=== PATIENT | female | born 1985 | race Caucasian/White ===

== ENCOUNTER → 2019-11-28 | Outpatient (CLI) | payer OTHER ==
--- NOTE | 2019-11-28 14:27 | US ---
EXAMINATION TYPE: US kidneys/renal and bladder DATE OF EXAM: 11/28/2019 COMPARISON: NONE CLINICAL HISTORY: R10.814 Left lower quadrant abdominal tenderness. microscopic hematuria, no pain pe r patient, h/o renal stones 6 years ago EXAM MEASUREMENTS: Right Kidney: 11.0 x 5.6 x 4.7 cm Left Kidney: 9.4 x 3.6 x 6.0 cm Right Kidney: No hydronephrosis or masses seen Left Kidney: No hydronephrosis or masses seen Bladder: wnl Bilateral Jets seen: yes There is no evidence for hydronephrosis at this point in time. No nephrolithiasis is seen. No daniel s are identified. The urinary bladder is anechoic. Bilateral ureteral jets are seen. IMPRESSION: Unremarkable study. If symptoms of hematuria persist, CT evaluation would be warranted.
== END | disposition home or self-care (01) ==
LOC: RADUSWWP 13:53
PROVIDERS: ATTEND Family Medicine
DX: R10.814 Left lower quadrant abdominal tenderness (principal); R82.998 Other abnormal findings in urine
CPT/HCPCS: 76770

== ENCOUNTER → 2020-12-21 | Outpatient (CLI) | payer OTHER ==
[2020-12-22 07:42] LABS: Prothrombin Time 10.7 sec (9.0-12.0)
== END | disposition home or self-care (01) ==
LOC: LABWHC1 11:12
PROVIDERS: ATTEND Physician Assistant Medical
DX: D68.8 Other specified coagulation defects (principal)
CPT/HCPCS: 36415; 81241; 83090; 85384; 85610; 85730; 86147

== ENCOUNTER → 2021-06-20 | Outpatient (CLI) | payer OTHER ==
--- NOTE | 2021-06-22 20:30 | XR ---
EXAMINATION TYPE: XR abdomen 2V DATE OF EXAM: 06/20/2021 COMPARISON: 02/19/2015 HISTORY: Pain mid abdomen TECHNIQUE: 2 view abdomen FINDINGS: Nonspecific bowel gas is present. Air is within small bowel loops as well as the colon. Melina ear to be 6 lumbar type vertebral bodies. The pedicles are intact. Sacroiliac joints are normal. No o rganomegaly is evident. No free air is evident. No suspicious differential air-fluid levels are evide nt. IMPRESSION: 1. No acute abdomen abnormality radiographically apparent
== END | disposition home or self-care (01) ==
LOC: RADXRYALE 16:55
PROVIDERS: ATTEND Physician Assistant Medical
DX: R10.84 Generalized abdominal pain (principal)
CPT/HCPCS: 74019

== ENCOUNTER 2021-06-21 12:13 | Emergency (ER) | payer OTHER ==
[2021-06-21 12:27] VITALS: TEMP 97.7
[2021-06-21] MEDS ORDERED: KETOROLAC 15 MG/ML 1 ML VIAL IVP STA (12:44)
[2021-06-21] MEDS ORDERED: SODIUM CHLORIDE 0.9% 1,000 ML IV STA (12:44)
--- NOTE | 2021-06-21 12:49 | ED ---
General Adult HPI - General Chief complaint: Abdominal Pain Stated complaint: abd pain, abn labs Time Seen by Provider: 06/21/21 12:38 Source: patient, family, RN notes reviewed, old records reviewed Mode of arrival: ambulatory Limitations: no limitations - History of Present Illness Initial comments: 36-year-old female presents with complaints of right-sided abdominal pain. She states that it does radiate diffusely through her abdomen and around umbilicus. States also feels like it is radiating into her lower back. She denies any dysuria, no fevers, no nausea vomiting or diarrhea. She did see her primary care doctor yesterday who did blood work and was found to have elevated white blood cell count was told to come to the emergency room for evaluation of appendicitis. She does have a surgical history of hysterectomy. She is a smoker. Does not take any medicines on a daily basis. -: days(s) (5) Radiation: back (lower ), abdomen (RUQ) Severity scale (1-10): 3 Quality: sharp Consistency: intermittent Improves with: none Worsens with: movement, other (palpation) Associated Symptoms: denies other symptoms Treatments Prior to Arrival: other (labs yesterday with elevated WBC count) - Related Data Allergies Allergy/AdvReac Type Severity Reaction Status Date / Time morphine Allergy Nausea & Verified 06/21/21 12:27 Vomiting Review of Systems ROS Statement: Those systems with pertinent positive or pertinent negative responses have been documented in the HPI. ROS Other: All systems not noted in ROS Statement are negative. Past Medical History Past Medical History: No Reported History History of Any Multi-Drug Resistant Organisms: None Reported Past Surgical History: No Surgical Hx Reported, Hysterectomy Past Psychological History: No Psychological Hx Reported Smoking Status: Current every day smoker Past Alcohol Use History: None Reported Past Drug Use History: None Reported General Exam Limitations: no limitations General appearance: alert, in no apparent distress Head exam: Present: atraumatic, normocephalic, normal inspection Eye exam: Present: normal appearance. Absent: scleral icterus, conjunctival injection, periorbital swelling ENT exam: Present: normal exam, normal oropharynx, mucous membranes moist Neck exam: Present: normal inspection, full ROM. Absent: tenderness, meningismus, lymphadenopathy, thyromegaly Respiratory exam: Present: normal lung sounds bilaterally. Absent: respiratory distress, wheezes, rales, rhonchi, stridor, chest wall tenderness, accessory muscle use, decreased breath sounds Cardiovascular Exam: Present: regular rate, normal rhythm GI/Abdominal exam: Present: soft, tenderness (diffusely, worse right lower quadrant), hyperactive bowel sounds. Absent: distended, guarding, rigid Extremities exam: Present: normal inspection, full ROM, normal capillary refill. Absent: tenderness, pedal edema Back exam: Present: normal inspection, full ROM. Absent: tenderness, CVA tenderness (R), CVA tenderness (L), rash noted Neurological exam: Present: alert, oriented X3 Skin exam: Present: warm, dry, intact, normal color. Absent: rash, cyanosis, diaphoretic, erythema, petechiae, pallor Course Vital Signs 06/21/21 06/21/21 12:24 14:27 Temperature 97.7 F Pulse Rate 87 72 Respiratory 18 20 Rate Blood Pressure 118/82 97/61 O2 Sat by Pulse 100 99 Oximetry - Reevaluation(s) Reevaluation #1: 06/21/21 16:[address] Wagner who recommended OVA-1 test and f/u in office. Patient states pain improved after toradol. Time: 16:40 Medical Decision Making - Medical Decision Making 36-year-old female presents with complaints of right-sided abdominal pain that radiates diffusely through her abdomen and into her lower back. Sent by primary care for possible appendicitis. Labs show no evidence of leukocytosis. Electrolytes are unremarkable. Urinalysis is clear with no hematuria or sign of infection. CT shows appendix is within normal limits. Gallbladder, bile ducts and pancreas are unremarkable. There is no evidence of renal calculus. No evidence of bowel obstruction. No evidence of lymphadenopathy. There is a large left adnexal cystic structure which could represent ovarian cystic neoplasm measuring 10.9 cm with multiple septations, recommended US. Pelvic ultrasound shows a cystic pelvic mass consistent with an enlarged left ovary containing multiple cysts. The largest cyst measures 8 cm in length. There is no evidence of ovarian torsion. The right ovary is not seen. There is a small amount of free fluid in the cul-de-sac and a 4.9 x 2.4 x 2.1 cm elongated anechoic nonvascular structure within the right adnexa. Patient states pain has improved after Toradol. Vital signs are stable. She is eating and drinking in the emergency room no nausea vomiting or diarrhea. Abdomen remains minimally tender in the right lower quadrant. She was directed to return to the emergency room with any new or concerning symptoms including increased pain, fevers, persistent nausea and vomiting. Case discussed with Dr. Wagner who recommended follow-up as outpatient, to call Wednesday for appointment in the next 7-10 days. Patient was directed to take 600 mg of Motrin every 6 hours as needed for pain. No sexual intercourse, pelvic rest, no heavy lifting. Patient agreeable to this plan of care. Case discussed with Dr. West. - Lab Data Result diagrams: 06/21/21 12:51 06/21/21 12:51 Lab Results 06/21/21 06/21/21 06/21/21 Range/Units 12:51 12:51 12:51 WBC 9.9 (3.8-10.6) k/uL RBC 4.61 (3.80-5.40) m/uL Hgb 14.6 (11.4-16.0) gm/dL Hct 44.0 (34.0-46.0) % MCV 95.3 (80.0-100.0) fL MCH 31.6 (25.0-35.0) pg MCHC 33.2 (31.0-37.0) g/dL RDW 12.5 (11.5-15.5) % Plt Count 238 (150-450) k/uL MPV 8.0 Neutrophils % 69 % Lymphocytes % 24 % Monocytes % 4 % Eosinophils % 2 % Basophils % 0 % Neutrophils # 6.9 (1.3-7.7) k/uL Lymphocytes # 2.4 (1.0-4.8) k/uL Monocytes # 0.4 (0-1.0) k/uL Eosinophils # 0.2 (0-0.7) k/uL Basophils # 0.0 (0-0.2) k/uL PT 9.9 (9.0-12.0) sec INR 0.9 (<1.2) APTT 27.7 (22.0-30.0) sec Sodium (137-145) mmol/L Potassium (3.5-5.1) mmol/L Chloride (98-107) mmol/L Carbon Dioxide (22-30) mmol/L Anion Gap mmol/L BUN (7-17) mg/dL Creatinine (0.52-1.04) mg/dL Est GFR (CKD-EPI)AfAm (>60 ml/min/1.73 sqM) Est GFR (CKD-EPI)NonAf (>60 ml/min/1.73 sqM) Glucose (74-99) mg/dL Plasma Lactic Acid Eulogio (0.7-2.0) mmol/L Calcium (8.4-10.2) mg/dL Total Bilirubin (0.2-1.3) mg/dL AST (14-36) U/L ALT (4-34) U/L Alkaline Phosphatase (38-126) U/L Total Protein (6.3-8.2) g/dL Albumin (3.5-5.0) g/dL Amylase (30-110) U/L Lipase (23-300) U/L Urine Color Light Yellow Urine Appearance Clear (Clear) Urine pH 7.0 (5.0-8.0) Ur Specific Story 1.003 (1.001-1.035) Urine Protein Negative (Negative) Urine Glucose (UA) Negative (Negative) Urine Ketones Negative (Negative) Urine Blood Negative (Negative) Urine Nitrite Negative (Negative) Urine Bilirubin Negative (Negative) Urine Urobilinogen <2.0 (<2.0) mg/dL Ur Leukocyte Esterase Negative (Negative) 06/21/21 06/21/21 Range/Units 12:51 12:51 WBC (3.8-10.6) k/uL RBC (3.80-5.40) m/uL Hgb (11.4-16.0) gm/dL Hct (34.0-46.0) % MCV (80.0-100.0) fL MCH (25.0-35.0) pg MCHC (31.0-37.0) g/dL RDW (11.5-15.5) % Plt Count (150-450) k/uL MPV Neutrophils % % Lymphocytes % % Monocytes % % Eosinophils % % Basophils % % Neutrophils # (1.3-7.7) k/uL Lymphocytes # (1.0-4.8) k/uL Monocytes # (0-1.0) k/uL Eosinophils # (0-0.7) k/uL Basophils # (0-0.2) k/uL PT (9.0-12.0) sec INR (<1.2) APTT (22.0-30.0) sec Sodium 137 (137-145) mmol/L Potassium 4.1 (3.5-5.1) mmol/L Chloride 106 (98-107) mmol/L Carbon Dioxide 24 (22-30) mmol/L Anion Gap 7 mmol/L BUN 8 (7-17) mg/dL Creatinine 0.69 (0.52-1.04) mg/dL Est GFR (CKD-EPI)AfAm >90 (>60 ml/min/1.73 sqM) Est GFR (CKD-EPI)NonAf >90 (>60 ml/min/1.73 sqM) Glucose 99 (74-99) mg/dL Plasma Lactic Acid Eulogio 0.8 (0.7-2.0) mmol/L Calcium 9.3 (8.4-10.2) mg/dL Total Bilirubin 0.8 (0.2-1.3) mg/dL AST 22 (14-36) U/L ALT 20 (4-34) U/L Alkaline Phosphatase 67 (38-126) U/L Total Protein 6.9 (6.3-8.2) g/dL Albumin 4.0 (3.5-5.0) g/dL Amylase 64 (30-110) U/L Lipase 148 (23-300) U/L Urine Color Urine Appearance (Clear) Urine pH (5.0-8.0) Ur Specific Story (1.001-1.035) Urine Protein (Negative) Urine Glucose (UA) (Negative) Urine Ketones (Negative) Urine Blood (Negative) Urine Nitrite (Negative) Urine Bilirubin (Negative) Urine Urobilinogen (<2.0) mg/dL Ur Leukocyte Esterase (Negative) Disposition Clinical Impression: Ovarian cyst Disposition: HOME SELF-CARE Condition: Good Instructions (If sedation given, give patient instructions): Ovarian Cyst (ED) Additional Instructions: Take 600 mg of Motrin every 6 hours as needed for pain. Increase your fluid intake. Pelvic rest, no sex and no heavy lifting. Follow-up with Dr. Wagner [employer]. Call the office on Wednesday morning to make an appointment at , they will schedule an appointment within the next 7-10 days. Return to the emergency room with any new or concerning symptoms including increased pain, persistent nausea vomiting or fevers. Is patient prescribed a controlled substance at d/c from ED?: No Referrals: Juan M Persaud DO [Primary Care Provider] - 1-2 days Ann Marie Wagner MD [STAFF PHYSICIAN] - 1-2 days Time of Disposition: 16:42
[2021-06-21 12:56] LABS: Appearance,Urine Clear (Clear); Basophils % (A) 0 %; Bilirubin,Urine Negative (Negative); Blood,Urine Negative (Negative); Color,Urine Light Yellow; Eosinophils # (A) 0.2 k/uL (0-0.7); Eosinophils % (A) 2 %; Glucose,Urine (UA) Negative (Negative); HGB 14.6 gm/dL (11.4-16.0); Ketones,Urine Negative (Negative); Leukocyte Esterase,Urine Negative (Negative); Lymphocytes # (A) 2.4 k/uL (1.0-4.8); Lymphocytes % (A) 24 %; MCH 31.6 pg (25.0-35.0); MCHC 33.2 g/dL (31.0-37.0); MCV 95.3 fL (80.0-100.0); Monocytes # (A) 0.4 k/uL (0-1.0); Monocytes % (A) 4 %; Neutrophils # (A) 6.9 k/uL (1.3-7.7); Neutrophils % (A) 69 %; Nitrite,Urine Negative (Negative); Platelet Count 238 k/uL (150-450); Protein,Urine Negative (Negative); RBC 4.61 m/uL (3.80-5.40); RDW 12.5 % (11.5-15.5); Specific Gravity,Urine 1.003 (1.001-1.035); Urobilinogen,Urine <2.0 mg/dL (<2.0); WBC 9.9 k/uL (3.8-10.6)
[2021-06-21 13:05] LABS: ALT 20 U/L (4-34); AST 22 U/L (14-36); African American GFR (CKD) >90 (>60 ml/min/1.73 sqM); Alkaline Phosphatase 67 U/L (38-126); Amylase 64 U/L (30-110); Anion Gap 7 mmol/L; Blood Urea Nitrogen 8 mg/dL (7-17); Calcium 9.3 mg/dL (8.4-10.2); Carbon Dioxide 24 mmol/L (22-30); Chloride 106 mmol/L (98-107); Glucose 99 mg/dL (74-99); Lipase 148 U/L (23-300); Non-African American GFR(CKD) >90 (>60 ml/min/1.73 sqM); Potassium 4.1 mmol/L (3.5-5.1); Sodium 137 mmol/L (137-145); Total Bilirubin 0.8 mg/dL (0.2-1.3); Total Protein 6.9 g/dL (6.3-8.2)
[2021-06-21 13:11] LABS: INR 0.9 (<1.2); Partial Thromboplastin Time 27.7 sec (22.0-30.0); Prothrombin Time 9.9 sec (9.0-12.0)
--- NOTE | 2021-06-21 13:45 | CT ---
EXAMINATION TYPE: CT abdomen pelvis w con CT DLP: 908.8 mGycm, Automated exposure control for dose reduction was used. DATE OF EXAM: 06/21/2021 1:36 PM COMPARISON: None CLINICAL INDICATION:Female, 36 years old with history of abdominal pain; Abdominal pain and abnormal labs TECHNIQUE: Standard CT of the abdomen and pelvis following the administration of 100 cc of Isovue 3 00 IV contrast material. Coronal and sagittal reformats were performed. FINDINGS: LOWER CHEST: Unremarkable ABDOMEN LIVER: Unremarkable GALLBLADDER AND BILE DUCTS: Unremarkable. PANCREAS: Unremarkable. SPLEEN: Unremarkable. ADRENAL GLANDS: Unremarkable. KIDNEYS AND URETERS: No evidence of hydronephrosis or renal calculus. The ureters are unremarkable. PELVIS BLADDER: Unremarkable REPRODUCTIVE: Multiloculated left adnexal structure felt to be ovarian measuring 10.9 x 7.6 x 7.4 cm. ABDOMEN & PELVIS STOMACH AND BOWEL: No evidence of bowel obstruction. Appendix is within normal limits. PERITONEUM: No evidence of pneumoperitoneum or free fluid. VASCULATURE: No evidence of aortic aneurysm. MUSCULOSKELETAL: No acute osseous abnormalities LYMPH NODES: No gross evidence for lymphadenopathy. SOFT TISSUE/ABDOMINAL WALL: Unremarkable IMPRESSION: 1. Large left adnexal cystic structure which could represent ovarian cystic neoplasm measuring up to 10.9 cm with multiple septations. This should be further evaluated pelvic ultrasound. Cysts of this s ize can but the ovary at increased risk of torsion.
[2021-06-21 14:28] VITALS: RESP 20
--- NOTE | 2021-06-21 15:57 | US ---
EXAMINATION TYPE: US pelvic complete DATE OF EXAM: 06/21/2021 COMPARISON: CT 2021 CLINICAL HISTORY: Left adnexal mass. Left adnexal mass seen on CT, right pelvic pain x 4 days, gravid a 1, para 1, history of partial hysterectomy 8 years ago TECHNIQUE: . Transabdominal sonographic images of the pelvis were acquired. Transvaginal sonographi c images were medically necessary to better assess the following anatomy: ovaries Date of LMP: 8 years ago EXAM MEASUREMENTS: Right Ovary: not seen Left Ovary: 7.7 x 4.6 x 6.3 cm 1. Uterus: surgically absent 2. Endometrium: surgically absent 3. Right Ovary: 4. Left Ovary: 3.3 x 3.3 x 5.2cm complex cyst, 4.0 x 4.2 x 8.2cm simple cyst Spectral, color and waveform doppler imaging shows good arterial and venous flow within the left ov juan luis; there is no evidence for ovarian torsion within the left ovary. 5. Bilateral Adnexa: 4.9 x 2.4 x 2.1cm elongated anechoic non vascular structure within right adnexa 6. Posterior cul-de-sac: free fluid IMPRESSION: There is cystic pelvic mass consistent with enlarged left ovary containing multiple cysts. The larges t cyst measures 8 cm in length. No evidence of ovarian torsion. Right ovary not seen. Small amount of free fluid in the cul-de-sac.
[2021-06-21 17:32] VITALS: BP 101/64; PULSE 80
== END 2021-06-21 17:55 | disposition home or self-care (01) ==
LOC: EC 12:13
DX: N83.201 Unspecified ovarian cyst, right side (principal); F17.200 Nicotine dependence, unspecified, uncomplicated; Z88.5 Allergy status to narcotic agent
CPT/HCPCS: 36415; 80053; 82150; 83605; 83690; 85025; 85610; 85730; 81003; 93976; 76856; 76830; 74177; 99284; 96374; 96361; J1885; Q9967

== ENCOUNTER → 2021-08-02 | Outpatient (CLI) | payer OTHER ==
[2021-08-02 11:23] LABS: Basophils # (A) 0.03 X 10*3/uL (0.00-0.10); Basophils % (A) 0.5 %; Eosinophils # (A) 0.19 X 10*3/uL (0.04-0.35); Eosinophils % (A) 3.2 %; HCT 42.7 % (37.2-46.3); Immature Grans, Automated 0.3 %; Lymphocytes # (A) 2.29 X 10*3/uL (0.90-5.00); Lymphocytes % (A) 38.2 %; MCH 30.7 pg (27.0-32.0); MCHC 32.8 g/dL (32.0-37.0); MCV 93.6 fL (80.0-97.0); Mean Platelet Volume 10.9 fL (9.5-12.2); Monocytes # (A) 0.38 X 10*3/uL (0.20-1.00); Monocytes % (A) 6.3 %; NRBC Per 100 WBC 0 /100 WBCS (0.0-0.0); Neutrophils # (A) 3.08 X 10*3/uL (1.80-7.70); Neutrophils % (A) 51.5 %; Platelet Count 230 X 10*3/uL (140-440); RBC 4.56 X 10*6/uL (4.10-5.20); RDW 11.7 % (11.5-14.5); WBC 5.99 X 10*3/uL (4.50-10.00)
[2021-08-02 11:32] LABS: African American GFR (CKD) 99.5 (60.0-200.0); Anion Gap 8.7 mmol/L (10.00-18.00); Blood Urea Nitrogen 8.7 mg/dL (9.0-27.0); Non-African American GFR(CKD) 85.8 (60.0-200.0); Potassium 4.3 mmol/L (3.5-5.5)
== END | disposition home or self-care (01) ==
LOC: LABPAT 08:20
PROVIDERS: ATTEND Obstetrics & Gynecology Obstetrics
DX: Z01.812 Encounter for preprocedural laboratory examination (principal); N83.202 Unspecified ovarian cyst, left side
CPT/HCPCS: 80051; 82565; 82947; 84520; 85025; 87086

== ENCOUNTER → 2022-01-16 | Outpatient (CLI) | payer OTHER ==
--- NOTE | 2022-01-16 16:04 | XR ---
EXAMINATION TYPE: XR wrist complete RT DATE OF EXAM: 01/16/2022 3:38 PM INDICATION: Patient age:Female; 36 years old; Reason for study: [id number] RT WRIST PAIN; [facility]. COMPARISON: None TECHNIQUE: 4 views of the right wrist. Frontal, navicular, lateral, and oblique. FINDINGS: No acute osseous pathology, joint dislocation, or joint effusion. No evidence of any soft tissue swelling is seen. IMPRESSION: No acute osseous pathology.
== END | disposition home or self-care (01) ==
LOC: RADXRYALE 15:27
PROVIDERS: ATTEND Physician Assistant
DX: M25.531 Pain in right wrist (principal)

== ENCOUNTER → 2023-03-12 | Outpatient (CLI) | payer OTHER ==
--- NOTE | 2023-03-12 15:52 | XR ---
EXAMINATION TYPE: XR chest 2V DATE OF EXAM: 03/12/2023 3:40 PM CLINICAL INDICATION:Female, 38 years old with history of [id number] CHEST PAIN; [facility] COMPARISON: Chest radiographs from 06/05/2012. TECHNIQUE: XR chest 2V Frontal and lateral views of the chest. FINDINGS: Lungs/Pleura: There is no evidence of pleural effusion, focal consolidation, or pneumothorax. Pulmonary vascularity: Unremarkable. Heart/mediastinum: Cardiomediastinal silhouette is unremarkable. Musculoskeletal: No acute osseous pathology. IMPRESSION: No acute cardiopulmonary disease/process.
== END | disposition home or self-care (01) ==
LOC: RADXRYALE 15:30
PROVIDERS: ATTEND Physician Assistant Medical
DX: R07.89 Other chest pain (principal)
CPT/HCPCS: 71046

== ENCOUNTER 2023-07-11 17:34 | Emergency (ER) | payer OTHER ==
[2023-07-11 18:01] VITALS: RESP 16; TEMP 98.2
--- NOTE | 2023-07-11 19:34 | ED ---
General Adult HPI - General Chief complaint: Recheck/Abnormal Lab/Rx Stated complaint: ABN LABS Time Seen by Provider: 07/11/23 18:43 Source: patient Mode of arrival: ambulatory Limitations: no limitations - History of Present Illness Initial comments: 78-year-old female presenting to the ED with complaints of abnormal labs. Patient states last week Wednesday was picking up sticks and cleaning of her yard and noticed that she started to have sore hamstrings after. Reports following she thought that this was just a muscle strain however over the week reports pain became significantly worse and therefore saw her PCP 2 days ago and had labs performed. Reports that she was told she had a CK of 4584. She was instructed to present to the ED should pain worsen or she notices any dark urine. Patient reports today pain seemed worse which is what prompted presentation to the ED for further evaluation. Denies [employer] colored urine. No chest pain or shortness of breath. No other complaints at this time. Urine sample at bedside appears to be a light yellow color. Does not appear dark. - Related Data Home Medications Medication Instructions Recorded Confirmed Erythromycin Base [Erythromycin] 250 mg PO DAILY 08/07/21 08/07/21 methylPREDNISolone [Medrol Dose 4 mg PO DIRECTED 08/07/21 08/07/21 Pack] Allergies Allergy/AdvReac Type Severity Reaction Status Date / Time morphine Allergy Nausea & Verified 08/11/21 09:02 Vomiting Review of Systems ROS Statement: Those systems with pertinent positive or pertinent negative responses have been documented in the HPI. ROS Other: All systems not noted in ROS Statement are negative. Past Medical History Past Medical History: No Reported History History of Any Multi-Drug Resistant Organisms: None Reported Past Surgical History: No Surgical Hx Reported, Hysterectomy Past Psychological History: No Psychological Hx Reported Smoking Status: Current every day smoker Past Alcohol Use History: None Reported Past Drug Use History: None Reported General Exam Limitations: no limitations General appearance: alert, in no apparent distress Eye exam: Present: normal appearance Neck exam: Present: normal inspection Cardiovascular Exam: Present: regular rate GI/Abdominal exam: Present: soft Extremities exam: Present: other (Patient reports tenderness to palpation to the posterior upper legs bilaterally. No overlying skin changes. Strength and sensation distally intact. DP/PT pulses intact.) Neurological exam: Present: alert, oriented X3 Skin exam: Present: warm, dry, intact Course Vital Signs 07/11/23 07/11/23 17:42 21:07 Temperature 98.2 F Pulse Rate 94 57 L Respiratory 16 16 Rate Blood Pressure 158/87 103/62 O2 Sat by Pulse 99 95 Oximetry Medical Decision Making - Medical Decision Making Was pt. sent in by a medical professional or institution (JOZEF Prakash, [employer], urgent care, hospital, or fci...) When possible be specific @ -No Did you speak to anyone other than the patient for history (EMS, parent, family, police, friend...)? What history was obtained from this source @ -No Did you review nursing and triage notes (agree or disagree)? Why? @ -I reviewed and agree with nursing and triage notes Were old charts reviewed (outside hosp., previous admission, EMS record, old EKG, old radiological studies, urgent care reports/EKG's, fci records)? Report findings @ -Reviewed prior laboratory studies. For further details please see HPI and MDM. Differential Diagnosis (chest pain, altered mental status, abdominal pain women, abdominal pain men, vaginal bleeding, weakness, fever, dyspnea, syncope, headache, dizziness, GI bleed, back pain, seizure, CVA, palpatations, mental health, musculoskeletal)? @ -Differential Musculoskeletal Muscular strain, contusion, ligament sprain, fracture, arthritis, septic arthritis, bursitis, cellulitis, muscle spasm, nerve compression, DVT, arterial occlusion, herpes zoster, electrolyte abnormality, tumor.... This is not meant to be in all inclusive list EKG interpreted by me (3pts min.). @ -EKG interpreted me showing a sinus bradycardia at [address] or T wave changes. OK 140, QRS 93, QT/QTc 390/383. X-rays interpreted by me (1pt min.). @ -None done CT interpreted by me (1pt min.). @ -None done U/S interpreted by me (1pt. min.). @ -None done What testing was considered but not performed or refused? (CT, X-rays, U/S, labs)? Why? @ -None What meds were considered but not given or refused? Why? @ -None Did you discuss the management of the patient with other professionals (professionals i.e. , JOZEF, PRINCIPAL [employer]OMATION ENGINEER, lab, RT, psych nurse, social welfare research worker, network director, teacher, fire prevention officer, case planner)? Give summary @ -No Was smoking cessation discussed for >3mins.? @ -No Was critical care preformed (if so, how long)? @ -No Were there social determinants of health that impacted care today? How? (Homelessness, low income, unemployed, alcoholism, drug addiction, transportation, low edu. Level, literacy, decrease access to med. care, correction, rehab)? @ -No Was there de-escalation of care discussed even if they declined (Discuss DNR or withdrawal of care, Hospice)? DNR status @ -No What co-morbidities impacted this encounter? (DM, HTN, Smoking, COPD, CAD, Cancer, CVA, ARF, Chemo, Hep., AIDS, mental health diagnosis, sleep apnea, morbid obesity)? @ -None Was patient admitted / discharged? Hospital course, mention meds given and route, prescriptions, significant lab abnormalities, going to OR and other pertinent info. @ -Discharge 38-year-old female presented to the ED with complaints of abnormal labs. Patient states initially a week ago was picking up sticks from her backyard cleaning it and when she finished noticed pain of her bilateral hamstrings. States as the week progressed the pain worsened and therefore saw her PCP. There she had blood work performed which resulted yesterday. Had a CK of 4487. Due to this was instructed to present to the ED should pain worsen or she have darkened urine. Laboratory studies reviewed. CK decreased to 952. Remainder laboratory studies unremarkable. Patient discharged home in stable condition with instructions to follow-up with her PCP. Undiagnosed new problem with uncertain prognosis? @ -No Drug Therapy requiring intensive monitoring for toxicity (Heparin, Nitro, Insulin, Cardizem)? @ -No Were any procedures done? @ -No Diagnosis/symptom? @ -Muscle strain Acute, or Chronic, or Acute on Chronic? @ -Acute Uncomplicated (without systemic symptoms) or Complicated (systemic symptoms)? @ -Uncomplicated Side effects of treatment? @ -No Exacerbation, Progression, or Severe Exacerbation? @ -No Poses a threat to life or bodily function? How? (Chest pain, [place], HI, pneumonia, PE, COPD, DKA, ARF, appy, cholecystitis, CVA, Diverticulitis, Homicidal, Suicidal, threat to staff... and all critical care pts) @ -No - Lab Data Result diagrams: 07/11/23 20:18 07/11/23 20:18 Lab Results 07/11/23 07/11/23 07/11/23 Range/Units 20:18 20:18 20:18 WBC 10.7 H (3.8-10.6) k/uL RBC 4.20 (3.80-5.40) m/uL Hgb 12.9 (11.4-16.0) gm/dL Hct 39.7 (34.0-46.0) % MCV 94.6 (80.0-100.0) fL MCH 30.7 (25.0-35.0) pg MCHC 32.4 (31.0-37.0) g/dL RDW 12.2 (11.5-15.5) % Plt Count 241 (150-450) k/uL MPV 8.2 Neutrophils % 81 % Lymphocytes % 15 % Monocytes % 3 % Eosinophils % 0 % Basophils % 0 % Neutrophils # 8.6 H (1.3-7.7) k/uL Lymphocytes # 1.6 (1.0-4.8) k/uL Monocytes # 0.3 (0-1.0) k/uL Eosinophils # 0.0 (0-0.7) k/uL Basophils # 0.0 (0-0.2) k/uL PT 10.3 (10.0-12.5) sec INR 0.9 (<1.2) APTT 24.7 (22.0-30.0) sec Sodium (137-145) mmol/L Potassium (3.5-5.1) mmol/L Chloride (98-107) mmol/L Carbon Dioxide (22-30) mmol/L Anion Gap mmol/L BUN (7-17) mg/dL Creatinine (0.52-1.04) mg/dL Est GFR (CKD-EPI)AfAm (>60 ml/min/1.73 sqM) Est GFR (CKD-EPI)NonAf (>60 ml/min/1.73 sqM) Glucose (74-99) mg/dL Calcium (8.4-10.2) mg/dL Phosphorus (2.5-4.5) mg/dL Total Bilirubin (0.2-1.3) mg/dL AST (14-36) U/L ALT (4-34) U/L Alkaline Phosphatase (38-126) U/L Creatine Kinase (30-135) U/L Total Protein (6.3-8.2) g/dL Albumin (3.5-5.0) g/dL Urine Color Colorless Urine Appearance Clear (Clear) Urine pH 6.5 (5.0-8.0) Ur Specific [place] 1.022 (1.001-1.035) Urine Protein Negative (Negative) Urine Glucose (UA) 4+ H (Negative) Urine Ketones Negative (Negative) Urine Blood Negative (Negative) Urine Nitrite Negative (Negative) Urine Bilirubin Negative (Negative) Urine Urobilinogen <2.0 (<2.0) mg/dL Ur Leukocyte Esterase Negative (Negative) 07/11/23 Range/Units 20:18 WBC (3.8-10.6) k/uL RBC (3.80-5.40) m/uL Hgb (11.4-16.0) gm/dL Hct (34.0-46.0) % MCV (80.0-100.0) fL MCH (25.0-35.0) pg MCHC (31.0-37.0) g/dL RDW (11.5-15.5) % Plt Count (150-450) k/uL MPV Neutrophils % % Lymphocytes % % Monocytes % % Eosinophils % % Basophils % % Neutrophils # (1.3-7.7) k/uL Lymphocytes # (1.0-4.8) k/uL Monocytes # (0-1.0) k/uL Eosinophils # (0-0.7) k/uL Basophils # (0-0.2) k/uL PT (10.0-12.5) sec INR (<1.2) APTT (22.0-30.0) sec Sodium 137 (137-145) mmol/L Potassium 4.2 (3.5-5.1) mmol/L Chloride 109 H (98-107) mmol/L Carbon Dioxide 21 L (22-30) mmol/L Anion Gap 7 mmol/L BUN 17 (7-17) mg/dL Creatinine 0.62 (0.52-1.04) mg/dL Est GFR (CKD-EPI)AfAm >90 (>60 ml/min/1.73 sqM) Est GFR (CKD-EPI)NonAf >90 (>60 ml/min/1.73 sqM) Glucose 136 H (74-99) mg/dL Calcium 9.2 (8.4-10.2) mg/dL Phosphorus 3.8 (2.5-4.5) mg/dL Total Bilirubin 0.5 (0.2-1.3) mg/dL AST 73 H (14-36) U/L ALT 39 H (4-34) U/L Alkaline Phosphatase 65 (38-126) U/L Creatine Kinase 952 H (30-135) U/L Total Protein 6.3 (6.3-8.2) g/dL Albumin 3.7 (3.5-5.0) g/dL Urine Color Urine Appearance (Clear) Urine pH (5.0-8.0) Ur Specific [place] (1.001-1.035) Urine Protein (Negative) Urine Glucose (UA) (Negative) Urine Ketones (Negative) Urine Blood (Negative) Urine Nitrite (Negative) Urine Bilirubin (Negative) Urine Urobilinogen (<2.0) mg/dL Ur Leukocyte Esterase (Negative) Disposition Clinical Impression: Muscle strain Disposition: HOME SELF-CARE Condition: Good Instructions (If sedation given, give patient instructions): Muscle Strain (ED) Additional Instructions: Please return to the Emergency Department if symptoms worsen or any other concerns. Please follow-up with your primary care provider. Is patient prescribed a controlled substance at d/c from ED?: No Referrals: Juan M Persaud DO [Primary Care Provider] - 1-2 days Time of Disposition: 22:40
[2023-07-11 20:26] LABS: Basophils % (A) 0 %; Eosinophils % (A) 0 %; HCT 39.7 % (34.0-46.0); HGB 12.9 gm/dL (11.4-16.0); Lymphocytes # (A) 1.6 k/uL (1.0-4.8); Lymphocytes % (A) 15 %; MCH 30.7 pg (25.0-35.0); MCHC 32.4 g/dL (31.0-37.0); MCV 94.6 fL (80.0-100.0); Mean Platelet Volume 8.2; Monocytes # (A) 0.3 k/uL (0-1.0); Monocytes % (A) 3 %; Neutrophils # (A) 8.6 k/uL (1.3-7.7); Neutrophils % (A) 81 %; Platelet Count 241 k/uL (150-450); RDW 12.2 % (11.5-15.5); WBC 10.7 k/uL (3.8-10.6)
[2023-07-11 20:38] LABS: Appearance,Urine Clear (Clear); Bilirubin,Urine Negative (Negative); Blood,Urine Negative (Negative); Color,Urine Colorless; Glucose,Urine (UA) 4+ (Negative); Ketones,Urine Negative (Negative); Leukocyte Esterase,Urine Negative (Negative); Nitrite,Urine Negative (Negative); PH, Urine 6.5 (5.0-8.0); Protein,Urine Negative (Negative); Specific Gravity,Urine 1.022 (1.001-1.035); Urobilinogen,Urine <2.0 mg/dL (<2.0)
[2023-07-11 20:41] LABS: ALT 39 U/L (4-34); African American GFR (CKD) >90 (>60 ml/min/1.73 sqM); Albumin 3.7 g/dL (3.5-5.0); Anion Gap 7 mmol/L; Blood Urea Nitrogen 17 mg/dL (7-17); Calcium 9.2 mg/dL (8.4-10.2); Carbon Dioxide 21 mmol/L (22-30); Chloride 109 mmol/L (98-107); Creatine Kinase 952 U/L (30-135); Glucose 136 mg/dL (74-99); Non-African American GFR(CKD) >90 (>60 ml/min/1.73 sqM); Sodium 137 mmol/L (137-145); Total Bilirubin 0.5 mg/dL (0.2-1.3); Total Protein 6.3 g/dL (6.3-8.2)
[2023-07-11 20:44] LABS: INR 0.9 (<1.2); Partial Thromboplastin Time 24.7 sec (22.0-30.0); Prothrombin Time 10.3 sec (10.0-12.5)
[2023-07-11] MEDS: KETOROLAC 15 MG/ML 1 ML VIAL IVP STA (21:08)
[2023-07-11 21:10] VITALS: BP 103/62; PULSE 57
[2023-07-11 21:30] LABS: Potassium 4.2 mmol/L (3.5-5.1)
[2023-07-11 21:31] LABS: AST 73 U/L (14-36); Alkaline Phosphatase 65 U/L (38-126); Phosphorus 3.8 mg/dL (2.5-4.5)
== END 2023-07-11 23:35 | disposition home or self-care (01) ==
LOC: EC 17:34
DX: S76.912A Strain of unspecified muscles, fascia and tendons at thigh level, left thigh, initial encounter (principal); S76.911A Strain of unspecified muscles, fascia and tendons at thigh level, right thigh, initial encounter; F17.200 Nicotine dependence, unspecified, uncomplicated; Z88.5 Allergy status to narcotic agent
CPT/HCPCS: 36415; 93005; 80053; 82550; 84100; 85025; 85610; 85730; 81003; 99284; 96374; J1885

== ENCOUNTER → 2024-03-28 | Outpatient (CLI) | payer OTHER ==
--- NOTE | 2024-03-28 15:17 | CT ---
EXAMINATION TYPE: CT chest w con DATE OF EXAM: 03/28/2024 2:53 PM COMPARISON: 06/05/2012. CLINICAL INDICATION: Female, 39 years old with history of R06.02 SHORTNESS OF BREATH; PHH, cough with low oxygen x 1 week TECHNIQUE: Multiple axial images were obtained through the chest. Sagittal and coronal reformats were created for review. MIP was performed on a separate workstation. Contrast used:100 mL of Isovue 300 with IV Contrast (None if empty) Oral contrast used: (None if empty) CT DLP: 383.2 mGycm, Automated exposure control for dose reduction was used. FINDINGS: LUNGS/ PLEURA: No focal consolidation, pneumothorax or pleural effusion. AIRWAY: Patent and unremarkable. HEART: Size within normal limits. MEDIASTINUM: No gross evidence of adenopathy. VASCULATURE: No aortic aneurysm. MUSCULOSKELETAL: No acute osseous abnormalities SOFT TISSUES/LYMPH NODES: Unremarkable. LOWER NECK: No significant findings. UPPER ABDOMEN: No significant findings. IMPRESSION: No acute process visualized, no airspace disease, no evidence for significant emphysema. [facility], , 03/28/2024 3:15 PM
== END | disposition home or self-care (01) ==
LOC: RADCTMAIN 14:16
PROVIDERS: ATTEND Family Medicine
DX: R06.02 Shortness of breath (principal); R05.9 Cough, unspecified
CPT/HCPCS: 71260; Q9967